=== PATIENT | male | born 1970 | race Caucasian/White ===

== ENCOUNTER → 2022-07-04 10:44 | Outpatient (BNVA) | payer OTHER, SELFPAY | PROVIDERS: PCP Internal Medicine; Visit Provider Internal Medicine | DX: S90.32XA Contusion of left foot, initial encounter (principal); W01.0XXA Fall on same level from slipping, tripping and stumbling without subsequent striking against object, initial encounter | CPT/HCPCS: 73630; 99203 ==

== ENCOUNTER 2022-12-08 12:03 | Outpatient (AMB) | payer OTHER, SELFPAY ==
--- NOTE | 2022-12-08 12:15 | MHC.OFFWIV ---
Intake Vital Signs 12/08/22 12:16 Weight 264 lb BP 118/72 Blood Pressure Location Rt brachial Position Sitting Pulse 64 Pulse Source Pulse Oximeter Temp 97.5 F Temp Source Temporal Artery Scan Pulse Oximetry (%) 97 Oxygen Delivery Method Room Air Intake Visit Reasons: [employer] Mid to lower back pain Intake Note: Patient here for lower back pain which has been bothersome for about 1 week. He states it hurts especially at night and very hard to get out of bed. no known injuries. no previous issues with back. Patient Tobacco Use Status: Never used Tobacco Allergies No Known Allergies Allergy (Mild, Unverified 12/08/22 12:17) NONE Do you need a note to return to daycare/school/sports/work: No HPI HPI Comments History of Present Illness Details This is a 52-year-old male who presents to the office today for sick visit. Patient complaining of mid to lower right-sided back pain x1 week. Patient cannot recall any trauma or injury to the area. He denies any red flag symptoms including fever/chills, saddle anesthesia, numbness/weakness/paresthesias of his extremities, or bowel/bladder retention/incontinence. He is otherwise feeling well without chest pain, shortness of breath, abdominal pain, nausea/vomiting/diarrhea, dysuria/hematuria, or urinary frequency/urgency. [facility] Social History Patient Tobacco Use Status: Never used Tobacco Review of Systems Const All systems reviewed & are unremarkable except as noted in HPI and below Reports no additional complaints Eyes Reports no additional complaints ENT Reports no additional complaints Card Reports no additional complaints Resp Reports no additional complaints GI Reports no additional complaints Reports no additional complaints Musc Reports no additional complaints Skin/Breast Reports system reviewed and no additional complaints, except as documented Neuro Reports no additional complaints Psych Reports no additional complaints Endo Reports no additional complaints Dilip/Lymph Reports no additional complaints Aller/Immun Reports no additional complaints Physical Exam Vital Signs: Last Vital Signs Temp 97.5 F 12/08/22 12:16 Pulse 64 12/08/22 12:16 BP 118/72 12/08/22 12:16 Pulse Ox 97 12/08/22 12:16 Oxygen Delivery Method Room Air 12/08/22 12:16 Const General: cooperative, healthy appearing, no acute distress and well developed Orientation/consciousness: patient oriented x3 HEENT Head: Yes normal to inspection Ears: hearing grossly normal bilaterally General nose exam: Normal external nose present Face and sinus: Yes normal facial exam Mouth: Normal oral and palatal mucosa present Eyes General: appearance normal, both eyes and all related structures Pupils: Equal, round and reactive pupils present EOM: EOMs intact bilaterally Resp Effort & Inspection: normal respiratory effort and no respiratory distress Auscultation: clear to auscultation bilaterally Cardio Rate: regular rate Rhythm: regular rhythm Heart sounds: no gallops, no murmurs and no rubs Peripheral pulses: Peripheral pulses 2+ throughout GI Inspection: No distended Palpation (GI): Soft to palpation and nontender Auscultation: normal bowel sounds Back/Spine/Pelvis Other: Tenderness to palpation of the right paraspinal musculature of the thoracic and lumbar spine with palpable muscle spasm. Negative straight leg raise bilaterally. No midline or spinous process tenderness to palpation. Patient is moving about the room in examination table without difficulty. Skin General skin exam: no rashes or lesions noted Neuro General: patient oriented x3 Cranial nerves: Yes CN's II-XII intact bilaterally and Yes Equal, round and reactive pupils present Gait exam (Neuro): Normal gait present Motor exam (neuro): 5/5 motor strength present throughout Extrem General: Yes normal to inspection, Yes full ROM and Yes no clubbing, cyanosis or edema Psych Appearance: grossly normal Mental Status: mental status grossly normal Assessment & Plan Assessment & Plan (1) Thoracolumbar back pain: Code(s): M54.50 - Low back pain, unspecified; M54.6 - Pain in thoracic spine Plan: This is a 52-year-old male presenting to the office complaining of thoracolumbar back pain x1 week. On physical examination, patient has tenderness to palpation of the right thoracolumbar paraspinal musculature with palpable muscle spasm and without midline or spinous process tenderness to palpation. He has no red flag symptoms to suggest cauda equina syndrome, disc herniation, osteomyelitis, or abscess. History and physical most consistent with for co lumbar paraspinal musculature sprain/strain. Recommended symptomatic management including hot compresses, Tylenol/Advil as on his patient does not have any medical contrast occasions, and activity modification. Prescribed lidocaine 5% patches daily and p.o. methocarbamol 750 mg 3 times daily as needed for muscle spasms. Patient advised to proceed directly to the emergency room if he were to develop worsening symptoms or any red flag symptoms. Patient verbalizes understanding and he is in agreement with the plan. Medications: New lidocaine 5% leave on most painful area for up to 12 hrs 1 patch topical DAILY 15 ea 0RF methocarbamol 750 mg PO TID PRN 15 tabs 0RF muscle spasm Coding Level of Care Code New Pt Level 4 (16778) Diagnoses Thoracolumbar back pain M54.50; M54.6
[2022-12-08 12:16] VITALS: BP 118/72; PULSE 64; TEMP 36.4; O2SAT 97
== END 2022-12-08 12:40 | disposition home or self-care (01) ==
PROVIDERS: PCP Internal Medicine; Visit Provider Physician Assistant Medical
DX: M54.50 Low back pain, unspecified (principal); M54.6 Pain in thoracic spine
CPT/HCPCS: 99204